=== PATIENT | male | born 1960 | race Hispanic/Latino ===

== ENCOUNTER 2022-07-14 12:01 | Inpatient (IN) | payer OTHER, SELFPAY ==
[2022-07-14 12:37] LABS: Hemoglobin 13.6 g/dL (14.0-18.0); Mean Corpuscular HGB CONC 32.9 g/dL (32.0-36.0); Mean Corpuscular Volume 91.3 fl (78.0-98.0); Red Blood Cell (RBC) Count 4.52 mill/uL (4.70-6.10); White Blood Cell (WBC) Count 6.4 thou/uL (4.8-10.8)
[2022-07-14 12:41] LABS: ALV-art Gradient 27.555 mmHg (0-20); Actual Bicarbonate (HCO3a) 18.9 mEq/L (22-28); Analyzer IN Cardio ER; CO2 Tension 26.3 mmHg (35.0-45.0); Calcium, Ionized (arterial) 1.12 mmol/L (1.12-1.30); Hemoglobin (Hb) 14.1 g/dL (14.0-18.0); O2 Tension (PaO2), arterial 89.3 mmHg (> 80.0); Potassium - ABG Lab 3.25 mmol/L (3.70-5.30); Puncture Site RRA; pH, Arterial 7.48 (7.35-7.45)
[2022-07-14 12:56] LABS: Band 1 % (5-11); Eosinophils 1 % (0-10); Lymphocytes 25 % (21-51); MDiff Complete? YES; Mean Platelet Volume 9.6 fL (7.4-10.4); Monocytes 17 % (0-10); Neutrophil 55 % (42-75); Platelet Count 115 thou/uL (130-400); Platelet Morphology Comment Appears Decreased; RBC Distribution Width 12.6 % (11.5-14.5); RBC Morphology Normal; Reactive Lymphocytes 1 % (0-10)
[2022-07-14 13:19] LABS: ALT (SGPT) 28 U/L (8-55); AST (SGOT) 14 U/L (5-34); Albumin 3.2 g/dL (3.4-4.8); Alkaline Phosphatase 86 U/L (40-110); Anion Gap 18 mmol/L (10-20); BUN (Urea Nitrogen) 42 mg/dL (8.4-25.7); Bilirubin, Total 1.3 mg/dL (0.2-1.2); CK (CPK) 78 U/L (30-200); Calc. Creatinine Clearance 0 mL/min (70-130); Calcium 8.9 mg/dL (7.8-10.44); Carbon Dioxide 18 mmol/L (23-31); Chloride 91 mmol/L (98-107); Estimated GFR 18; Globulin 3.2 g/dL (2.4-3.5); Glucose 329 mg/dL (80-115); Magnesium 1.7 mg/dL (1.6-2.6); Potassium 3.3 mmol/L (3.5-5.1); Protein, Total 6.4 g/dL (5.8-8.1); Sodium 124 mmol/L (136-145)
[2022-07-14] MEDS ORDERED: Ondansetron PF 4 MG/2 ML Vial IVP PRN (15:20)
[2022-07-14 15:27] LABS: Lactic Acid 1.9 mmol/L (0.5-2.2)
[2022-07-14] MEDS ORDERED: Sodium Chloride 0.9% 1,000 ML IV SCH (15:30)
[2022-07-14] MEDS ORDERED: Heparin 10,000 UNITS/ 10 ML VIAL SLOW IVP SCH (15:30)
[2022-07-14] MEDS ORDERED: Heparin 25,000 units/D5W 500 ML IVPB SCH (15:30)
[2022-07-14 15:40] LABS: SARS-CoV-2 NAA Rapid Test Not Detected (NotDetected)
[2022-07-14 15:48] LABS: Platelet Count 104 thou/uL (130-400)
[2022-07-14] MEDS ORDERED: Heparin 25,000 units/D5W 500 ML ONE (15:56)
[2022-07-14 16:47] LABS: Troponin I 0.013 ng/mL (< 0.028)
[2022-07-14 17:43] LABS: Phosphorus 3.8 mg/dL (2.3-4.7)
[2022-07-14 17:44] LABS: Anion Gap 19 mmol/L (10-20); BUN (Urea Nitrogen) 40 mg/dL (8.4-25.7); Calc. Creatinine Clearance 52 mL/min (70-130); Carbon Dioxide 16 mmol/L (23-31); Chloride 94 mmol/L (98-107); Estimated GFR 25; Glucose 364 mg/dL (80-115); Potassium 3.5 mmol/L (3.5-5.1); Sodium 125 mmol/L (136-145)
[2022-07-14 20:31] LABS: Troponin I Less than 0.010 ng/mL (< 0.028)
[2022-07-14] MEDS: Sodium Bicarbonate Tab 325 MG TAB PO SCH (23:33)
[2022-07-15 04:42] LABS: ALT (SGPT) 22 U/L (8-55); AST (SGOT) 12 U/L (5-34); Albumin 2.9 g/dL (3.4-4.8); Alkaline Phosphatase 78 U/L (40-110); Anion Gap 14 mmol/L (10-20); BUN (Urea Nitrogen) 34 mg/dL (8.4-25.7); Bilirubin, Total 1.1 mg/dL (0.2-1.2); Calc. Creatinine Clearance 89 mL/min (70-130); Calcium 8.7 mg/dL (7.8-10.44); Carbon Dioxide 22 mmol/L (23-31); Chloride 95 mmol/L (98-107); Estimated GFR 49; Globulin 3.2 g/dL (2.4-3.5); Glucose 340 mg/dL (80-115); Potassium 3.5 mmol/L (3.5-5.1); Protein, Total 6.1 g/dL (5.8-8.1); Sodium 127 mmol/L (136-145)
[2022-07-15 05:31] LABS: Band 1 % (5-11); Eosinophils 1 % (0-10); Hemoglobin 12.8 g/dL (14.0-18.0); Lymphocytes 28 % (21-51); MDiff Complete? YES; Mean Corpuscular HGB CONC 33.5 g/dL (32.0-36.0); Mean Corpuscular Hemoglobin 30.7 pg (27.0-31.0); Mean Corpuscular Volume 91.5 fl (78.0-98.0); Mean Platelet Volume 9.8 fL (7.4-10.4); Monocytes 12 % (0-10); Neutrophil 58 % (42-75); Platelet Count 106 thou/uL (130-400); Platelet Morphology Comment Appears Decreased; RBC Distribution Width 12.6 % (11.5-14.5); RBC Morphology Normal; Red Blood Cell (RBC) Count 4.18 mill/uL (4.70-6.10); White Blood Cell (WBC) Count 4.7 thou/uL (4.8-10.8)
[2022-07-15] MEDS: Acetaminophen 325 MG TAB PO PRN ×3 (09:12→20:15)
[2022-07-15] MEDS: Sodium Bicarbonate Tab 325 MG TAB PO SCH ×2 (09:15→20:14)
[2022-07-15] MEDS ORDERED: Dextrose 50% Abboject 50 ML SYRINGE SLOW IVP PRN (10:19)
[2022-07-15] MEDS ORDERED: HumaLOG 300 UNITS/3 ML VIAL SC PRN (10:19)
[2022-07-15] MEDS ORDERED: Dextrose 5% in Water 1,000 ML IV PRN (10:19)
[2022-07-15] MEDS: HumaLOG 300 UNITS/3 ML VIAL SC PRN ×3 (10:35→16:53)
[2022-07-15] MEDS ORDERED: Apixaban 5 MG TAB PO SCH (16:00)
[2022-07-15 17:59] LABS: Bacteria/HPF None Seen HPF (None Seen); Bilirubin Negative (Negative); Blood, Urine Negative (Negative); Clarity Clear (Clear); Glucose, Urine (Dipstick) 500 mg/dL (Negative); Ketone, Urine Negative (Negative); Leukocyte 75 Leu/uL (Negative); Nitrite Negative (Negative); Protein, Urine (Dipstick) Negative (Neg-Trace); RBC/HPF 0-3 HPF (0-3); Specific Gravity, Urine 1.008 (1.002-1.036); Squamous Epithelial 0-3 HPF (0-3); Urobilinogen Normal mg/dL (Less than 2)
[2022-07-15] MEDS: Apixaban 5 MG TAB PO SCH (20:14)
[2022-07-15 20:41] LABS: Hemoglobin A1c 10.9 % (4.0-6.0)
[2022-07-15] MEDS: Labetalol HCl 100 MG/20 ML VIAL SLOW IVP PRN (20:42)
[2022-07-15] MEDS ORDERED: Insulin Glargine 30 UNITS/0.3 ML VIAL SC SCH (21:00)
[2022-07-15 21:13] LABS: Free T4 (Free Thyroxine) Greater than 5.00 ng/dL (0.70-1.48)
[2022-07-16] MEDS: Labetalol HCl 100 MG/20 ML VIAL SLOW IVP PRN (06:06)
[2022-07-16] MEDS: Acetaminophen 325 MG TAB PO PRN ×3 (06:37→17:57)
[2022-07-16] MEDS: HumaLOG 300 UNITS/3 ML VIAL SC PRN ×2 (06:38→10:34)
[2022-07-16] MEDS: Sodium Bicarbonate Tab 325 MG TAB PO SCH (09:22)
[2022-07-16] MEDS: Apixaban 5 MG TAB PO SCH ×2 (09:23→19:57)
[2022-07-16] MEDS: NIFEdipine XL 90 MG TAB PO SCH (11:42)
[2022-07-16 12:17] LABS: Cardiolipin IgA Ab 4.8 APL-U/mL (<14 Negative); Cardiolipin IgG Ab 3.4 GPL-U/mL (<10 Negative); EliA APS New Method **** NEW METHOD ****; beta-2-Glycoprotein I IgA Ab 7.1 U/mL (<7 Negative); beta-2-Glycoprotein I IgG Ab 1.5 U/mL (<7 Negative); beta-2-Glycoprotein I IgM Abs Less than 2.9 U/mL (<7 Negative)
[2022-07-16 16:45] LABS: Hemoglobin 14.1 g/dL (14.0-18.0); Platelet Count 117 thou/uL (130-400)
[2022-07-16 17:08] LABS: Anion Gap 14 mmol/L (10-20); BUN (Urea Nitrogen) 16 mg/dL (8.4-25.7); Calc. Creatinine Clearance 155 mL/min (70-130); Calcium 9.6 mg/dL (7.8-10.44); Carbon Dioxide 26 mmol/L (23-31); Chloride 98 mmol/L (98-107); Estimated GFR 96; Glucose 202 mg/dL (80-115); Potassium 3.3 mmol/L (3.5-5.1); Sodium 135 mmol/L (136-145)
[2022-07-16] MEDS ORDERED: Atenolol 25 MG TAB PO SCH (17:15)
[2022-07-16] MEDS ORDERED: Methimazole 10 MG TAB PO SCH ×2 (17:15→21:00)
[2022-07-16] MEDS ORDERED: Lactated Ringer's 1,000 ML IV SCH (18:15)
[2022-07-16] MEDS ORDERED: Potassium Chloride 20 MEQ TAB PO SCH (18:15)
[2022-07-16] MEDS ORDERED: Electrolyte Replacement Protocol 1 EACH FS SCH (18:15)
[2022-07-16] MEDS ORDERED: Insulin Glargine 30 UNITS/0.3 ML VIAL SC SCH (21:00)
[2022-07-16] MEDS: Methimazole 10 MG TAB PO SCH (22:24)
[2022-07-17 04:26] LABS: ALT (SGPT) 20 U/L (8-55); AST (SGOT) 16 U/L (5-34); Alkaline Phosphatase 76 U/L (40-110); Anion Gap 15 mmol/L (10-20); BUN (Urea Nitrogen) 21 mg/dL (8.4-25.7); Bilirubin, Total 0.9 mg/dL (0.2-1.2); Calc. Creatinine Clearance 119 mL/min (70-130); Calcium 9.2 mg/dL (7.8-10.44); Carbon Dioxide 22 mmol/L (23-31); Chloride 100 mmol/L (98-107); Estimated GFR 71; Globulin 3.4 g/dL (2.4-3.5); Glucose 152 mg/dL (80-115); Lymphocytes 22 % (21-51); MDiff Complete? YES; Magnesium 1.5 mg/dL (1.6-2.6); Mean Corpuscular HGB CONC 33.8 g/dL (32.0-36.0); Mean Corpuscular Hemoglobin 31.6 pg (27.0-31.0); Mean Corpuscular Volume 93.4 fl (78.0-98.0); Mean Platelet Volume 8.9 fL (7.4-10.4); Monocytes 16 % (0-10); Neutrophil 62 % (42-75); Platelet Count 125 thou/uL (130-400); Platelet Morphology Comment Appears Decreased; Potassium 3.8 mmol/L (3.5-5.1); Protein, Total 6.4 g/dL (5.8-8.1); RBC Distribution Width 12.3 % (11.5-14.5); RBC Morphology Normal; Red Blood Cell (RBC) Count 4.42 mill/uL (4.70-6.10); Sodium 133 mmol/L (136-145); White Blood Cell (WBC) Count 5.6 thou/uL (4.8-10.8)
[2022-07-17] MEDS ORDERED: Magnesium 2 GM/50 ML(in water) 2 GM in Premix Bag 1 BAG IVPB SCH (05:00)
[2022-07-17 05:27] VITALS: BMI 42.5
[2022-07-17] MEDS: HumaLOG 300 UNITS/3 ML VIAL SC PRN ×2 (05:41→11:06)
[2022-07-17] MEDS: Atenolol 25 MG TAB PO SCH (08:39)
[2022-07-17] MEDS: Acetaminophen 325 MG TAB PO PRN ×2 (08:39→16:18)
[2022-07-17] MEDS: Apixaban 5 MG TAB PO SCH ×2 (08:40→19:58)
[2022-07-17] MEDS: Methimazole 10 MG TAB PO SCH ×3 (08:41→19:59)
[2022-07-17] MEDS ORDERED: FLU VACC QS2022-23(6MOS UP)/PF 60 MCG/0.5 ML SYRINGE IM ONE (09:00)
[2022-07-17] MEDS: NIFEdipine XL 90 MG TAB PO SCH (11:07)
[2022-07-17] MEDS: Gabapentin 300 MG CAP PO SCH ×2 (14:47→19:58)
[2022-07-17] MEDS: metFORMIN 500 MG TAB PO SCH (16:17)
[2022-07-17] MEDS ORDERED: Sodium Bicarbonate Tab 325 MG TAB PO SCH (21:00)
[2022-07-18] MEDS: Acetaminophen 325 MG TAB PO PRN (03:59)
[2022-07-18 04:42] LABS: BUN (Urea Nitrogen) 23 mg/dL (8.4-25.7); Calc. Creatinine Clearance 167 mL/min (70-130); Calcium 9.4 mg/dL (7.8-10.44); Carbon Dioxide 18 mmol/L (23-31); Chloride 101 mmol/L (98-107); Estimated GFR 97; Glucose 111 mg/dL (80-115); Sodium 131 mmol/L (136-145)
[2022-07-18 04:55] LABS: Anion Gap 16 mmol/L (10-20)
[2022-07-18 05:06] LABS: Hemoglobin 13.7 g/dL (14.0-18.0); Mean Corpuscular HGB CONC 32.8 g/dL (32.0-36.0); Mean Corpuscular Hemoglobin 30.6 pg (27.0-31.0); Mean Corpuscular Volume 93.5 fl (78.0-98.0); Mean Platelet Volume 8.9 fL (7.4-10.4); Platelet Count 140 thou/uL (130-400); RBC Distribution Width 12.2 % (11.5-14.5); Red Blood Cell (RBC) Count 4.47 mill/uL (4.70-6.10); White Blood Cell (WBC) Count 5.5 thou/uL (4.8-10.8)
[2022-07-18 05:07] LABS: Band 1 % (5-11); Eosinophils 3 % (0-10); Lymphocytes 19 % (21-51); MDiff Complete? YES; Monocytes 19 % (0-10); Neutrophil 58 % (42-75)
[2022-07-18] MEDS ORDERED: Magnesium 2 GM/50 ML(in water) 2 GM in Premix Bag 1 BAG IVPB SCH (08:00)
[2022-07-18] MEDS: Sodium Bicarbonate Tab 325 MG TAB PO SCH ×2 (09:54→21:02)
[2022-07-18] MEDS: Atenolol 25 MG TAB PO SCH (09:55)
[2022-07-18] MEDS: Apixaban 5 MG TAB PO SCH ×2 (09:56→21:01)
[2022-07-18] MEDS: Gabapentin 300 MG CAP PO SCH ×3 (09:56→21:01)
[2022-07-18] MEDS: metFORMIN 500 MG TAB PO SCH ×2 (09:57→18:37)
[2022-07-18] MEDS: Methimazole 10 MG TAB PO SCH ×3 (09:57→21:02)
[2022-07-18] MEDS: NIFEdipine XL 90 MG TAB PO SCH (10:00)
[2022-07-18] MEDS ORDERED: Iopamidol-370 76% 500 ML 1 ML ONE (10:33)
[2022-07-18 15:20] LABS: Hemoglobin 13.7 g/dL (14.0-18.0); Platelet Count 152 thou/uL (130-400)
[2022-07-18] MEDS ORDERED: Tamsulosin HCl 0.4 MG CAP PO SCH (21:00)
[2022-07-18] MEDS: Clotrimazole 1 % Cream 30 GM TUBE TOP SCH (21:20)
[2022-07-19 05:28] LABS: Anion Gap 16 mmol/L (10-20); BUN (Urea Nitrogen) 29 mg/dL (8.4-25.7); Calc. Creatinine Clearance 147 mL/min (70-130); Calcium 9.6 mg/dL (7.8-10.44); Carbon Dioxide 22 mmol/L (23-31); Chloride 97 mmol/L (98-107); Estimated GFR 88; Glucose 113 mg/dL (80-115); Magnesium 2.2 mg/dL (1.6-2.6); Potassium 3.6 mmol/L (3.5-5.1); Sodium 131 mmol/L (136-145)
[2022-07-19] MEDS: Acetaminophen 325 MG TAB PO PRN (05:56)
[2022-07-19] MEDS ORDERED: Apixaban 5 MG TAB PO SCH (09:00)
[2022-07-19] MEDS: Atenolol 25 MG TAB PO SCH (09:13)
[2022-07-19] MEDS: metFORMIN 500 MG TAB PO SCH (09:13)
[2022-07-19] MEDS: Gabapentin 300 MG CAP PO SCH (09:14)
[2022-07-19] MEDS: Clotrimazole 1 % Cream 30 GM TUBE TOP SCH (09:14)
[2022-07-19] MEDS: Methimazole 10 MG TAB PO SCH (09:15)
[2022-07-19] MEDS: Sodium Bicarbonate Tab 325 MG TAB PO SCH (09:15)
[2022-07-19 11:43] VITALS: BP 134/59; TEMP 98
[2022-07-19] MEDS: NIFEdipine XL 90 MG TAB PO SCH (11:50)
== END 2022-07-19 13:02 | disposition home or self-care (01) | DRG 643 ==
LOC: ERS 12:01 → ERHOLD 15:32 → IMCU/EMU 19:20 → 2SW 07-18 03:59
PROVIDERS: ADMIT Internal Medicine; ATTEND Family Medicine
DX: E22.2 Syndrome of inappropriate secretion of antidiuretic hormone (principal); G93.41 Metabolic encephalopathy; N17.9 Acute kidney failure, unspecified; I13.0 Hypertensive heart and chronic kidney disease with heart failure and stage 1 through stage 4 chronic kidney disease, or unspecified chronic kidney disease; N18.4 Chronic kidney disease, stage 4 (severe); E87.20 Acidosis, unspecified; I50.32 Chronic diastolic (congestive) heart failure; I82.431 Acute embolism and thrombosis of right popliteal vein; Z68.41 Body mass index [BMI] 40.0-44.9, adult; E66.9 Obesity, unspecified; G47.33 Obstructive sleep apnea (adult) (pediatric); D63.1 Anemia in chronic kidney disease; E78.5 Hyperlipidemia, unspecified; E11.22 Type 2 diabetes mellitus with diabetic chronic kidney disease; E11.65 Type 2 diabetes mellitus with hyperglycemia; E05.00 Thyrotoxicosis with diffuse goiter without thyrotoxic crisis or storm; Z86.718 Personal history of other venous thrombosis and embolism; Z79.01 Long term (current) use of anticoagulants; Z79.899 Other long term (current) drug therapy
CPT/HCPCS: 36415; 36416; 36600; 70450; 71045; 71275; 74176; 76536; 78451; 80048; 80053; 81001; 81241; 82550; 82570; 82805; 83036; 83605; 83735; 83880; 83970; 84100; 84153; 84156; 84300; 84439; 84443; 84481; 84484; 85014; 85018; 85025; 85049; 85379; 85652; 85730; 86146; 86147; 86376; 86800; 87040; 93005; 93306; 93970; 94660; 96361; 96374; A9540; J1644; J1815; J3475; J7050; J7120; Q9967